=== PATIENT | male | born 1930 | race Hispanic/Latino ===

== ENCOUNTER 2016-08-16 09:45 | Observation (INO) | payer OTHER ==
[~2016-08-16] VITALS: Ht 170.2 cm; Wt 75.0 kg
--- NOTE | 2016-08-16 10:00 | ED NEURO DEFICIT/STROKE ---
History of Present Illness General Chief Complaint: Neuro Symptoms/ Deficit Stated Complaint: BIBA ?CVA Source: patient Exam Limitations: no limitations Vital Signs & Intake/Output Vital Signs & Intake/Output Vital Signs Date Time Temp Pulse Resp B/P B/P Pulse O2 O2 Flow FiO2 Mean Ox Delivery Rate 08/16 1010 99 Room Air 08/16 1010 98.2 72 18 188/86 97 Room Air Allergies Coded Allergies: No Known Allergies (08/16/16) Reconcile Medications Aspirin (Aspirin*) 81 MG TAB.CHEW 1 TAB PO DAILY blood thinner Lisinopril 2.5 MG TABLET 1 TAB PO DAILY stroke prevention Lovastatin 40 MG TABLET 1 TAB PO DAILY High Cholestrol with food Triage Nurses Notes Reviewed? yes Onset: Abrupt (unknown) Duration: constant, continues in ED, onset presumably overnight Severity: severe New Weakness: left facial HPI: Patient presents for evaluation of a left facial droop similar to a prior CVA he had years ago while in [place]. The patient's noticed the alteration in facial appearance when the patient awoke this morning. In addition the patient' s states that he was unable to speak upon awakening. Past History Travel History Traveled to [place] past 21 day No Medical History Any Pertinent Medical History? see below for history Neurological: CVA Surgical History Surgical History: non-contributory Family History Hx Contributory? No Review of Systems Review of Systems Constitutional: Reports: no symptoms. EENTM: Reports: no symptoms. Respiratory: Reports: no symptoms. Cardiovascular: Reports: no symptoms. GI: Reports: no symptoms. Genitourinary: Reports: no symptoms. Musculoskeletal: Reports: no symptoms. Skin: Reports: no symptoms. Neurological/Psychological: Reports: see HPI. Hematologic/Endocrine: Reports: no symptoms. Immunologic/Allergic: Reports: no symptoms. All Other Systems: Reviewed and Negative Physical Exam Physical Exam General Appearance: see below Cranial Nerves: see below Comments: Gen.: Well-nourished, well-developed, no acute respiratory distress. Head: Normocephalic, atraumatic. Eyes: Normal inspection bilaterally Ears: Normal inspection bilaterally Nose: Normal inspection Throat/mouth : Moist mucosa Neck: Supple, full range of motion, no goiter Heart: Regular rate and rhythm, no murmurs rubs or gallops Lungs: Clear to auscultation bilaterally with normal air entry Chest: Nontender Back: Normal range of motion Abdomen: Soft, nontender, nondistended, normal bowel sounds Extremities: Normal range of motion grossly, equal radial pulses, no cyanosis clubbing or edema Neurologic: Cranial nerves grossly intact, speech is clear Skin: warm and dry Psychiatric: Calm, cooperative, no apparent delusions or hallucinations Core Measures CVA/TIA Diagnosis: Yes NIH Stroke Scale: Total 3 Comment: TPA not administered given the unclear onset time, minimal symptoms and improving symptoms Severe Sepsis Present: No Septic Shock Present: No Progress Differential Diagnosis: stroke, tia,hypoglycemia, Hennessy's palsy Plan of Care: Orders Procedure Date/time Status URINALYSIS 08/16 1231 Active EKG 08/16 1008 Active PROTHROMBIN TIME 08/16 1005 Complete LYME TITRE 08/16 1005 Active CBC WITHOUT DIFFERENTIAL 08/16 1005 Complete BASIC METABOLIC PANEL 08/16 1005 Complete Current Medications Sig/Eli Start time Last Medication Dose Stop Time Status Admin Aspirin 81 MG ONCE ONE 08/16 1245 UNVr (Aspirin) 08/16 1246 Laboratory Tests 08/16/16 1233: Urine Color Pending, Urine Clarity Pending, Urine pH Pending, Ur Specific [place] Pending, Urine Protein Pending, Urine Ketones Pending, Urine Nitrite Pending, Urine Bilirubin Pending, Urine Urobilinogen Pending, Ur Leukocyte Esterase Pending, Ur Microscopic Pending, Urine Hemoglobin Pending, Urine Glucose Pending 08/16/16 1038: Anion Gap 10, Estimated GFR > 60, BUN/Creatinine Ratio 18.0, Glucose 102 H, Calcium 9.1, PT 11.4, INR 1.09, CBC w Diff NO MAN DIFF REQ, RBC 3.97 L, MCV 94.7 H, MCH 32.0 H, RDW 13.2, MPV 7.3 L, Gran % 66.3, Lymphocytes % 25.4, Monocytes % 5.5, Eosinophils % 2.4, Basophils % 0.4, Absolute Granulocytes 4.0, Absolute Lymphocytes 1.5, Absolute Monocytes 0.3, Absolute Eosinophils 0.1, Absolute Basophils 0, PUBS MCHC 33.8, Lyme Disease Antibody Pending Diagnostic Imaging: Discussed w/RAD: CT Scan. Radiology Impression: PATIENT: ESVIN BOURGEOIS PRESENT AGE: 85 PATIENT ACCOUNT NO: [id number] : [birth year] LOCATION: [facility] ORDERING PHYSICIAN: NOVA HENNESSY MD SERVICE DATE: 08/16/16 EXAM TYPE: CAT - CT HEAD WO IV CONTRAST EXAMINATION: CT HEAD WITHOUT CONTRAST CLINICAL INFORMATION: Left facial droop. COMPARISON: None TECHNIQUE: Contiguous axial imaging was performed from the skull base to vertex without intravenous administration of contrast. DLP: 621 mGy-cm FINDINGS: There is no evidence of acute intracranial hemorrhage or territorial infarction. No abnormal mass effect or midline shift is seen. Duvall to white matter differentiation is well preserved. No extra-axial fluid collections are identified. The ventricles are normal in size for the patient's age. There is no abnormal attenuation within the brain parenchyma. The osseous structures and soft tissues are normal. The mastoid air cells and visualized portions of the paranasal sinuses are well aerated. IMPRESSION: No acute intracranial pathology. DICTATED BY: GIUSEPPE DEL RIO MD DATE/TIME DICTATED:08/16/161026 REPAIR ORDER CLERK:MALIA DATE/TIME TRANSCRIBED:08/16/161026 CONFIDENTIAL, DO NOT COPY WITHOUT APPROPRIATE AUTHORIZATION. <Electronically signed in Other Vendor System> SIGNED BY: GIUSEPPE DEL RIO MD 08/16/16 1033 Initial ED EKG: NSR, rate (67), RBBB, lafb Comments: 08/16/2016 10:07:30 AM Patient's case discussed with Dr. AYOUB, who states patient is out of the time window for TPA and intravascular intervention. CTA would not be helpful under the circumstances. He feels patient may be suffering Hennessy's palsy and suggests Lyme titer. CAT scan of the head ordered as MRI scan unavailable until 3:00 this afternoon. 08/16/2016 12:34:18 PM patient's case discussed with Dr. Fall. Patient presents with hypertension and a history that he had difficulty speaking while at home. In addition his symptoms seem to have improved substantially since symptom onset. I do not feel at this point I can attribute this to a Hennessy's palsy, I feel this patient requires hospitalization for further evaluation. 08/16/2016 12:40:00 PM patient has swallowed a half a glass of water with no delayed swallow cough or other complications. He has passed a bedside swallow evaluation. In addition the patient's left facial droop has improved significantly. His nasolabial fold is much more defined now. Departure Departure Disposition: STILL A PATIENT Condition: Stable Clinical Impression Primary Impression: TIA (transient ischemic attack) Qualifiers: Transient cerebral ischemia type: unspecified Qualified Code: G45.9 - Transient cerebral ischemic attack, unspecified Departure Forms: Customer Survey General Discharge Information Prescriptions: Current Visit Scripts Lovastatin 1 TAB PO DAILY #30 TAB with food Lisinopril 1 TAB PO DAILY #30 TAB Aspirin (Aspirin*) 1 TAB PO DAILY #30 TAB Observation Note Spoke With: MARION TOUSSAINT,GINA Brown Physician Advisor Notified: NELSY TOUSSAINT,HERNANDO [facility] Patient In: Non-ED OBS Care Area Rationale for Observation: My rational for observation is as follows patient's clinical presentation is consistent with a TIA versus CVA. He presents with hypertension and a left facial droop. Symptoms are improving since presumed onset overnight. Although Hennessy's palsy remains in the differential I think this clinical presentation is more consistent with a TIA. I feel the patient now requires hospitalization for investigation of reversible causes of his TIA including cardioembolic phenomenon and carotid disease. Cardiology consultation for echocardiogram should be considered. Neurology consultation should also be considered to help differentiate between CVA versus Hennessy's palsy. Patient has no primary care physician currently and I feel he is a poor candidate for outpatient management at this time. I feel he would have great difficulty in an expedited evaluation given the lack of a primary care physician.
--- NOTE | 2016-08-16 10:10 | NUR ---
PT TO ED FOR L SIDED FACIAL DROOP AND ONE EPISODE OF GARBLED SPEECH WHEN HIS WOKE HIM UP THIS AM AROUND 7AM. ON ARRIVAL TO ED, SLIGHT L SIDED FACIAL DROOP NOTED, TONGUE DRIFT TO R. DR SPRAGUE IMMEDIATELY TO BEDSIDE TO EVALUATE.
--- NOTE | 2016-08-16 10:24 | NUR ---
PT SEEN IN ROOM WITH FAMILY PRESENT. LABS SENT PER ORDER. NEW #20 PLACED IN RFA. PT CHENGED INTO HOSPITAL GOWN AND SENT TO CT SCAN
--- NOTE | 2016-08-16 10:33 | CT SCAN REPORT ---
EXAMINATION: CT HEAD WITHOUT CONTRAST CLINICAL INFORMATION: Left facial droop. COMPARISON: None TECHNIQUE: Contiguous axial imaging was performed from the skull base to vertex without intravenous administration of contrast. DLP: 621 mGy-cm FINDINGS: There is no evidence of acute intracranial hemorrhage or territorial infarction. No abnormal mass effect or midline shift is seen. Duvall to white matter differentiation is well preserved. No extra-axial fluid collections are identified. The ventricles are normal in size for the patient's age. There is no abnormal attenuation within the brain parenchyma. The osseous structures and soft tissues are normal. The mastoid air cells and visualized portions of the paranasal sinuses are well aerated. IMPRESSION: No acute intracranial pathology.
--- NOTE | 2016-08-16 10:41 | NUR ---
ALL BLOOD REDRAWN PER REQ OF THE LAB (2 SST,LAV,BLUE,PINK,ROLDAN)
[2016-08-16 10:48] LABS: ABSOLUTE BASOPHIL COUNT 0 /CUMM (0.0-0.2); ABSOLUTE EOSINOPHIL COUNT 0.1 /CUMM (0.0-0.7); ABSOLUTE LYMPH COUNT 1.5 /CUMM (1.2-3.4); ABSOLUTE MONOCYTE COUNT 0.3 /CUMM (0.10-0.60); BASOPHIL % 0.4 % (0.0-2.0); EOSINOPHIL % 2.4 % (0-5); GRANULOCYTE % 66.3 % (42.2-75.2); HEMATOCRIT 37.6 % (42-52); MEAN CORPUSCULAR HGB CONC 33.8 G/DL (33.0-37.0); MEAN CORPUSCULAR VOLUME 94.7 FL (80.0-94.0); MEAN PLATELET VOLUME 7.3 FL (7.4-10.4); PLATELET COUNT 273 /CUMM (130-400); RBC DISTRIBUTION WIDTH 13.2 % (11.5-14.5); RED BLOOD CELL CT 3.97 /CUMM (4.70-6.10)
[2016-08-16 10:53] LABS: PT 11.4 SEC (9.4-12.5)
--- NOTE | 2016-08-16 12:24 | NUR ---
PT STATING HE IS FEELING MUCH BETTER, SLIGHT LEFT SIDED FACIAL DROOP NOTED CONTINUED. PT REQUESTING TO STAND TO VOID. THIS RN AT BEDSIDE AND PT ABLE TO STAND AND TAKE FEW STEPS WITH NO DIFFICULTY OR DIZZINESS. STATING HE IS FEELING "PRETTY MUCH TO NORMAL" THROUGH SON WHO IS TRANSLATING PT IS ONLY K[place]H SPEAKING.
--- NOTE | 2016-08-16 12:49 | NUR ---
DIET ORDER AND URINE ORDER PER DR SPRAGUE, PT PASSED SWALLOW EVAL WITH DR SPRAGUE WITH NO DIFFICULTY
--- NOTE | 2016-08-16 13:17 | NUR ---
PT GOING TO ROOM 172-01.
--- NOTE | 2016-08-16 13:25 | NUR ---
HOUSE STAFF IN WITH PT FOR NEURO EXAMINATION
--- NOTE | 2016-08-16 13:49 | NUR ---
REPORT TO MARYBEL TIJERINA ON 1N
--- NOTE | 2016-08-16 14:00 | History & Physical ---
KIANA TOUSSAINT,[facility] 08/16/16 1400: General Information and HPI MD Statement: I have seen and personally examined ESVIN BOURGEOIS and documented this H&P. The patient is a 85 year old M who presented with a patient stated chief complaint of [lower extremity weakness and slurred speech]. Source of Information: patient, family Exam Limitations: language barrier History of Present Illness: Patient does not speak Samoan and most of the history was taken from the granddaughter and the . 85-year-old male with PMH of TIA 3 years ago, who presented to [facility] ED at 9: 45 a.m. after an episode of left lower extremity numbness and weakness, slurred speech, and left side facial drop. 2 weeks ago patient came from [place] to the , since he came he did not take his aspirin. Patient states that report difficulty speaking and left-sided facial weakness. Patient denies dizziness, headache, visual change, hearing change, current weakness or numbness. Patient never smoked, never drinks alcohol, never used recreational drug, lives with his , and ambulates independently at home. Allergies/Medications Allergies: Coded Allergies: No Known Allergies (08/16/16) Past History Travel History Traveled to [place] past 21 day No Medical History Neurological: CVA EENT: NONE Respiratory: NONE Gastrointestinal: NONE Hepatic: NONE Renal: NONE Musculoskeletal: NONE Psychiatric: NONE Endocrine: NONE Blood Disorders: NONE Cancer(s): NONE Surgical History Surgical History: non-contributory Past Family/Social History Psychosocial History ETOH Use: denies use Illicit Drug Use: denies illicit drug use Review of Systems Review of Systems Constitutional: Reports: weakness. Denies: chills, diaphoresis, fever, unexplained weight loss. EENTM: Denies: blurred vision, visual changes, hearing changes. Cardiovascular: Denies: chest pain, orthopena, palpitations, peripheral edema. Respiratory: Denies: cough, orthopnea, short of breath. GI: Denies: no symptoms, abdominal pain. Genitourinary: Denies: dysuria. Musculoskeletal: Reports: joint pain (left ankle). Denies: back pain. Neurological/Psychological: Reports: see HPI. Exam & Diagnostic Data Last 24 Hrs of Vital Signs/I&O Vital Signs Date Time Temp Pulse Resp B/P B/P Pulse O2 O2 Flow FiO2 Mean Ox Delivery Rate 08/16 1530 97.9 64 16 138/68 97 Room Air 06/ 1456 97.8 67 18 168/72 06/05 1454 97 168/72 06/05 1415 97.4 70 16 210/88 06/05 1357 210/90 06/05 1350 97.4 70 16 183/82 99 Room Air 06/05 1320 62 185/83 06/05 1308 97.7 61 16 187/79 06/05 1305 64 187/79 06/05 1243 97.0 78 18 184/88 98 Room Air 06/ 1010 99 Room Air / 1010 98.2 72 18 188/86 97 Room Air Intake & Output 08/16 1600 06/ 0800 06/ 0000 Intake Total Output Total 110 Balance -110 Output, Urine 110 Patient 75 kg Weight Weight Reported by Patient Measurement Method Physical Exam General Appearance Alert, Oriented X3, Cooperative, No Acute Distress HEENT Atraumatic, PERRLA, EOMI, Mucous Membr. moist/pink Cardiovascular Regular Rate, Normal S1, Normal S2, No Murmurs Lungs Clear to Auscultation, Normal Air Movement Abdomen Soft, No Tenderness Neurological Strength at 5/5 X4 Ext, Slurred speech , left side oral deviation Extremities No Clubbing, No Cyanosis, No Edema Last 24 Hrs of Labs/Ang: Laboratory Tests 08/16/16 1233: Urine Color YEL, Urine Clarity CLEAR, Urine pH 6.0, Ur Specific [place] 1.020, Urine Protein NEG, Urine Ketones NEG, Urine Nitrite NEG, Urine Bilirubin NEG, Urine Urobilinogen 0.2, Ur Leukocyte Esterase SMALL H, Ur Microscopic SEDIMENT EXAMINED, Urine RBC RARE, Urine WBC 1-3 H, Ur Epithelial Cells RARE, Urine Bacteria RARE H, Urine Mucus RARE, Urine Hemoglobin NEG, Urine Glucose NEG 08/16/16 1038: Anion Gap 10, Estimated GFR > 60, BUN/Creatinine Ratio 18.0, Glucose 102 H, Hemoglobin A1c 5.4, Calcium 9.1, Triglycerides 101, Cholesterol 255 H, LDL Cholesterol, Calc 193 H, HDL Cholesterol 42, Cholesterol/HDL Ratio 6 H, PT 11.4, INR 1.09, CBC w Diff NO MAN DIFF REQ, RBC 3.97 L, MCV 94.7 H, MCH 32.0 H, RDW 13.2, MPV 7.3 L, Gran % 66.3, Lymphocytes % 25.4, Monocytes % 5.5, Eosinophils % 2.4, Basophils % 0.4, Absolute Granulocytes 4.0, Absolute Lymphocytes 1.5, Absolute Monocytes 0.3, Absolute Eosinophils 0.1, Absolute Basophils 0, PUBS MCHC 33.8, Lyme Disease Antibody Pending Assessment/Plan Assessment: This is 85 year old male with a history of TIA 2 years ago who presented with a similar symptom suggestive of another TIA episode. Patient stopped taking his aspirin 2 weeks ago. Patient denies any history of hypertension, hyperlipidemia , or diabetes, however has blood pressure was found to be above 180 the ED. Patient symptom almost totally resolved. Head CT impression: No acute intracranial pathology. Patient will be admitted as an observe. 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 Patient blood pressure was elevated up to 210/90 on the ED. Patient was given 1.25 Vasotec IV, later he received 5 mg of IV labetalol. Blood pressure still above 200 1.TIA * Start aspirin * Start statin * We will place Neurology consult * We will discuss the need for vascular consult * PT/OT/ST 2. Hyperlipidemia HDL 42, LDL 193, and cholesterol 255 * Start statin 3. Hypertension * Allow permissive hypertension with a target being above 184 tonight * Start lisinopril 10 mg daily Patient is full code DVT PPx Lovenox Heart healthy diet As Ranked By This Provider Problem List: 1. TIA (transient ischemic attack) Qualifiers Transient cerebral ischemia type: unspecified Qualified Code: G45.9 - Transient cerebral ischemic attack, unspecified Core Measures/Miscellaneous Acute Coronary Syndrome ACS Diagnosis: No Cerebrovascular Accident CVA/TIA Diagnosis: Yes Congestive Heart Failure CHF Diagnosis: No Venous Thromboembolism VTE Risk Factors: Acute medical illness, Age > 40 No [facility] VTE prophylaxis d/t: No contraindications No VTE Pharm Prophylaxis d/t: No contraindications VTE Diagnosis: No VTE Type: NONE VTE Confirmed by (Test): NONE Severe Sepsis Severe Sepsis Present: No Septic Shock Septic Shock Present: No Miscellaneous Documentation Attending Case Discussed With: PRAKASH ROSAS MD Primary Care Physician: PATIENT HAS NO PRIMARY CARE DR Patient sees these Specialists neurology Level of Patient Care: Telemetry SOUMYA FRANCO 08/16/16 1407: Resident Review Statement Resident Statement: examined this patient, discussed with employee communications intern, agreed with employee communications intern Other Findings: Patient is 85-year-old Colombian-speaking male with past medical history significant for TIA 3 years ago in by mouth not on any aspirin/statin came with chief complaint of left-sided facial droop and transient left-sided lower extremity weakness since morning. Patient does not speak or understand Samoan and history is taken from family including son, grandson, granddaughter and . Granddaughter and grandson was translating and according to them patient woke up this morning fine and went to take vulcanizer at that time he was walking slowly and tracking his left leg and by the time he came back after shower there was an obvious left-sided facial droop and slurring of her speech. 911 was called and patient was brought in to the emergency room. Neurology was called by ER physician and first is was thought that his symptoms might be due to Hennessy's palsy because ER physician also noticed some flattening of left for head but later on during his ER stay within an hours his symptoms improved and his facial droop/nasolabial fold were significantly resolved and most likely at that point his symptoms were thought to be due to TIA, head CT was done which was negative and it was thought that patient is already out of TPA window and was given aspirin. Condition denied any chest pain, palpitations, headache, nausea, dizziness, blurring of his vision, ringing in his extremities, any upper or lower extremity weakness, any urinary or bowel complaints. Jessica mentioned that he had similar symptoms almost 3 years ago but there was no definitive diagnoses and symptoms resolved and patient was never been taking any prophylactic medications. He was never been diagnosed with any major medical issues including high blood pressure, diabetes or any cardiac problems. Vital signs on admission were temperature 97.4, pulse 70, respiratory rate 16, blood pressure 183/82 and he was saturating 99% on room air. Blood pressure later on came up to 210/90 and was given 1.25 mg of Vasotec. Labs were nonsignificant except his cholesterol was 255, triglycerides 101, LDL 193 and HDL 42. EKG showed normal sinus rhythm with no acute ST-T wave changes Assessment and plan: Patient is 85-year-old Colombian-speaking gentleman with history of TIA in the past not on aspirin or statin came with chief complaint of left facial droop and left lower extremity weakness with significant improvement in his symptoms within a few hours most likely due to TIA. We will observe patient on telemetry floor for 23 hours Problem list 1. Left facial droop, slurring of his speech most likely TIA 2. Hyperlipidemia 3. Hypertension 4. History of TIA Plan 1. 23 hour observation on telemetry floor 2. Will start patient on aspirin and statins 3. Patient was found to have elevated blood pressure but given his TIA have her blood pressure we will aggressively control his blood pressure to reduce chances of more TIA. Patient was given 1.25 mg of Vasotec, his blood pressure was 210/ 90 and we will give him once labetalol 5 mg IV and we will start him on oral lisinopril. 4. We will request neurology evaluation 5. We will order a carotid ultrasound to rule out any significant carotid stenosis 6. We will request echocardiogram to look for any wall motion abnormality and we will check for ventricular ejection fraction 7. Patient passed bedside swallow evaluation but we will recommend formal swallow/speech evaluation 8. PT evaluation 9. NIH stroke scale every 2 hours Patient is full code Pharmacological DVT prophylaxis Heart healthy diet MEGHAN SCHULTZMaria Dolores 08/16/16 1731: General Information and HPI Allergies/Medications Home Med list Aspirin (Aspirin*) 81 MG TAB.CHEW 1 TAB PO DAILY blood thinner Lisinopril 2.5 MG TABLET 1 TAB PO DAILY stroke prevention Lovastatin 40 MG TABLET 1 TAB PO DAILY High Cholestrol with food Attending MD Review Statement Attending Statement Attending MD Statement: examined this patient, discuss w/resident/PA/APPLIANCE PARTS COUNTER CLERK, agreed w/resident/PA/APPLIANCE PARTS COUNTER CLERK, discussed with family, reviewed EMR data (avail), discussed with nursing Attending Assessment/Plan: Patient seen and examined at bedside. Discussed with patient's family at bedside the care plan. 85-year-old male from [place] who came in about 2-3 weeks ago to [facility]. Patient has past history of CVA about 3 years ago for which he was put on aspirin. Patient had similar symptoms at that time with the left leg weakness and facial droop. Patient stopped taking his aspirin 2 days prior to coming to the [place] that's about 3 weeks ago. Patient was positive to the emergency room with the chief complaint of left leg weakness and left-sided facial droop and some speech disturbances. Patient's found patient to be dragging his left foot this morning along with the facial droop and slurring of speech and called 911. Patient on exam still has the facial droop though his speech has cleared up now. CT scan of the head done in the emergency room was negative for acute stroke. We'll admit the patient on telemetry and continue him on aspirin and start him on Lipitor. We will get a carotid ultrasound as well as an echocardiogram and will also get a neurology consult. We will allow for permissive hypertension for now.
--- NOTE | 2016-08-16 14:07 | NUR ---
RESIDENT SOUMYA FRANCO CALLED AND STATED SHE WAS CANCELLING THE IV LABETOLOL ORDER AND ORDERING PO INSTEAD SO PTS PRESSURE WILL COME DOWN SLOWLY BEING PT ALREADY RECIEVED IV MEDS. PER REDIENT ITS OK TO STILL SEND THE PATIENT TO TELE WITH THE BP BEING 210/90 AT THIS TIME. LILLIANA MORRISON
--- NOTE | 2016-08-16 14:43 | NUR ---
PHYSICAL THERAPY: RECIEVED CONSULT ORDERS, REVIEWED CHART, ATTEMPTED TO SEE Pt. PATIENT IS AT ULTRASOUND. P.T. WILL F/U APPROPRAITE FOR EVALUATION.
--- NOTE | 2016-08-16 15:11 | ULTRASOUND REPORT ---
EXAMINATION: DUPLEX BILATERAL CAROTID ULTRASOUND CLINICAL INFORMATION: Left facial droop COMPARISON: None. TECHNIQUE: Duplex bilateral carotid US was performed using real-time ultrasound and Doppler techniques (integrating B-mode 2D vascular images, Doppler spectral analysis and color flow Doppler imaging). These techniques were utilized to interrogate the extracranial carotid and vertebral arteries bilaterally. The degree of stenosis is based off criteria similar to NASCET. FINDINGS: 1. On the right: There is a hemodynamically significant stenosis correlating to 50-79% diameter reduction of the proximal internal carotid artery. A moderate amount of hyperechoic plaque is noted at the bifurcation extending into the proximal internal carotid artery. The peak systolic and diastolic velocities as measured within the proximal internal carotid artery equals 137 and 34 cm/s respectively. The vertebral artery is patent demonstrating antegrade flow. The right external carotid artery shows no significant stenosis. 2. On the left: There is a hemodynamically significant stenosis correlating to 50-79% diameter reduction of the proximal internal carotid artery. A moderate amount of hyperechoic plaque is noted at the bifurcation extending into the proximal internal carotid artery. The peak systolic and diastolic velocities as measured within the proximal internal carotid artery equals 135 and 34 cm/s respectively. The vertebral artery is patent demonstrating antegrade flow. The left ECA demonstrates a mild stenosis with peak systolic velocity of under 200 cm/s. IMPRESSION: Bilateral hemodynamically significant stenoses consistent with a 50-79% diameter reduction involving both the proximal left and right internal carotid arteries.
[2016-08-16 15:30] VITALS: BP 138/68
--- NOTE | 2016-08-16 17:31 | Admission Certification ---
Admission Certification Certification Statement - As attending physician, I certify that at the time of - admission, based on clinical presentation, severity of - symptoms, need for further diagnostic testing and - therapeutic interventions, and risk of adverse outcomes - without in-hospital treatment, in my clinical assessment, - this patient requires an acute hospital stay for a minimum - of two nights or longer. I have also considered psychsocial - factors such as support system, advanced age, financial - issues, cognitive issues, and failed out-patient treatments, - past re-admission history, safety of patient, and lack of - compliance as applicable. Specific rationale supporting this admission is: stroke
[2016-08-16 19:00] VITALS: BP 158/70
--- NOTE | 2016-08-16 19:08 | ECHOCARDIOGRAM REPORT ---
ESVIN BOURGEOIS Age: 85 : 1930 Gender: M Exam Date: 08/16/2016 16:56 Exam Location: [facility] Ht (in): 67 Wt (lb): 165 BSA: 1.89 BP: 168 / 72 Ordering Physician: SOUMYA FRANCO MD Referring Physician: SOUMYA FRANCO MD Technologist: Ivy Lock DOUG Room Number: 172 Indications: STROKE Rhythm: Technical Quality: Good FINDINGS Left Ventricle Normal size left ventricle. Mild concentric left ventricular hypertrophy. Normal left ventricular ejection fraction visually estimated at >65 %. No obvious regional wall motion abnormalities. Abnormal relaxation filling pattern of the left ventricle for age (stage 1 diastolic dysfunction). Right Ventricle The right ventricle is normal in size and function. Right Atrium The right atrium is normal in size. Left Atrium The left atrium is normal in size. The interatrial septum is intact. Mitral Valve Mild thickening/calcification of the mitral valve leaflets. Mild mitral annular calcification. Mild mitral regurgitation. Aortic Valve Diffuse thickening (sclerosis) of the aortic valve cusps without reduced excursion. No aortic stenosis. No aortic regurgitation. Tricuspid Valve The tricuspid valve is normal in structure and function. There is mild tricuspid regurgitation. Pulmonary artery systolic pressure is normal. Pulmonic Valve Structurally normal pulmonic valve. There is trace pulmonic regurgitation. Pericardium Normal pericardium without effusion. No pleural effusion. Great Vessels Normal aortic root dimension. Aortic arch not visualized. CONCLUSIONS Mild concentric left ventricular hypertrophy. Normal left ventricular ejection fraction visually estimated at >65 Abnormal relaxation filling pattern of the left ventricle for age (stage 1 diastolic dysfunction). The left atrium is normal in size. Mild thickening/calcification of the mitral valve leaflets. Mild mitral annular calcification. Mild mitral regurgitation. Diffuse thickening (sclerosis) of the aortic valve cusps without reduced excursion. No aortic stenosis. No aortic regurgitation. Pulmonary artery systolic pressure is normal. Venkatesh Dawn M.D. (Electronically Signed) Final Date: 16 August 2016 19:07 MEASUREMENTS (Male / Female) Normal Values 2D ECHO LV Diastolic Diameter PLAX 3.5 cm 4.2 - 5.9 / 3.9 - 5.3 cm LV Systolic Diameter PLAX 2.4 cm 2.1 - 4.0 cm LV Fractional Shortening PLAX 31.4 % 25 - 46 % LV Ejection Fraction 2D Teich 60.4 % IVS Diastolic Thickness 1.2 cm LVPW Diastolic Thickness 1.2 cm LV Relative Wall Thickness 0.7 RV Internal Dim ED PLAX 2.0 cm 1.9 - 3.8 cm LVOT Diameter 2.0 cm Aortic Root Diameter 3.0 cm LA Systolic Diameter LX 3.4 cm 3.0 - 4.0 / 2.7 - 3.8 cm LA Volume 33.0 cm 18 - 58 / 22 - 52 cm Ascending Aorta Diameter 3.2 cm DOPPLER AV Peak Velocity 161.0 cm/s AV Peak Gradient 10.4 mmHg AV Mean Velocity 108.0 cm/s AV Mean Gradient 5.0 mmHg AV Velocity Time Integral 34.8 cm LVOT Peak Velocity 77.5 cm/s LVOT Peak Gradient 2.4 mmHg LVOT Mean Velocity 52.4 cm/s LVOT Mean Gradient 1.0 mmHg LVOT Velocity Time Integral 18.4 cm LVOT Stroke Volume 57.8 cm AV Area Cont Eq vti 1.7 cm AV Area Cont Eq pk 1.5 cm MV Peak Velocity 104.0 cm/s MV Peak Gradient 4.3 mmHg MV Mean Velocity 51.3 cm/s MV Mean Gradient 1.0 mmHg Mitral E Point Velocity 59.7 cm/s Mitral A Point Velocity 91.8 cm/s Mitral E to A Ratio 0.7 MV PHT Velocity 73.8 cm/s MV Deceleration [facility] 310.0 cm/s MV Pressure Half Time 71.4 ms MV Area PHT 3.1 cm MV Deceleration Time 301.0 ms TR Peak Velocity 247.0 cm/s TR Peak Gradient 24.4 mmHg Right Atrial Pressure 5.0 mmHg Pulmonary Artery Systolic Pressu 29.4 mmHg Right Ventricular Systolic Press 29.4 mmHg PV Peak Velocity 78.6 cm/s PV Peak Gradient 2.5 mmHg PV Mean Velocity 53.4 cm/s PV Mean Gradient 1.0 mmHg PV Velocity Time Integral 16.2 cm LV E' Lateral Velocity 8.1 cm/s Mitral E to LV E' Lateral Ratio 7.4 LV E' Septal Velocity 5.8 cm/s Mitral E to LV E' Septal Ratio 10.4
[2016-08-17 00:08] VITALS: BP 132/52
--- NOTE | 2016-08-17 07:30 | PN- Housestaff ---
Subjective Follow-up For: TIA Hyperlipidemia Hypertension Tele-Events Since Last Visit: Normal sinus rhythm, heart rate fluctuating between 50-61, no other acute overnight events. Subjective: Patient seen and examined this morning. He was lying comfortably in his chair in no acute distress. He was am able to ambulate without any weakness in his lower extremities. Continues to have slurred speech and left facial droop. Denies any current weakness, numbness in his upper or lower extremities, blood pressure has been ranging between 132-158 systolic. Afebrile, remains on room air satting well and high 90s. Review of Systems Constitutional: Denies: chills, fever. Cardiovascular: Denies: chest pain, palpitations. Respiratory: Denies: cough, short of breath, sputum production. Gastrointestinal: Denies: abdominal pain, constipation, diarrhea, nausea, vomiting. Genitourinary: Denies: dysuria. Objective Last 24 Hrs of Vital Signs/I&O Vital Signs Date Time Temp Pulse Resp B/P B/P Pulse O2 O2 Flow FiO2 Mean Ox Delivery Rate 08/17 1034 64 120/70 08/17 0800 98.8 81 16 120/70 96 Room Air 06/ 0008 98.4 66 16 132/52 96 Room Air 06/05 1900 66 158/70 06/05 1530 97.9 64 16 138/68 97 Room Air 06/05 1456 97.8 67 18 168/72 06/05 1454 97 168/72 06/05 1415 97.4 70 16 210/88 06/05 1357 210/90 06/05 1350 97.4 70 16 183/82 99 Room Air Intake & Output 08/17 1600 06 0800 08/17 0000 Intake Total 200 420 Output Total Balance 200 420 Intake, IV 20 Intake, Oral 200 400 Patient 75 kg Weight Physical Exam General Appearance: Cooperative, No Acute Distress Cardiovascular: Regular Rate, Normal S1, Normal S2, No Murmurs Lungs: Clear to Auscultation, Normal Air Movement Abdomen: Normal Bowel Sounds, Soft, No Tenderness Neurological: Strength at 5/5 X4 Ext, slurred speech, left facial droop, Extremities: No Clubbing, No Cyanosis, No Edema Current Medications: Current Medications Sig/Eli Start time Last Medication Dose Route Stop Time Status Admin Acetaminophen 650 MG Q6P PRN 08/16 1400 AC PO Aspirin 81 MG DAILY 08/17 1000 AC 08/17 PO 1034 Atorvastatin Calcium 40 MG 1700 08/16 1700 DC PO Atorvastatin Calcium 80 MG 1700 08/16 1700 AC 08/16 PO 2000 Enoxaparin Sodium 0 .STK-MED ONE 08/16 1410 DC SC Enoxaparin Sodium 40 MG DAILY@1300 / 1350 AC 08/16 SC 1415 Ibuprofen 600 MG Q6P PRN 08/16 1400 DC PO Labetalol HCl 5 MG ONCE ONE 08/16 1430 DC IV 08/16 1431 Labetalol HCl 0 .STK-MED ONE 08/16 1410 DC IV Labetalol HCl 5 MG ONCE ONE 08/16 1400 CAN IV 08/16 1401 Lisinopril 10 MG DAILY 08/16 1415 AC 08/17 PO 1034 Lisinopril 0 .STK-MED ONE 08/16 1414 DC PO Oxycodone/ 2 TAB Q6P PRN 08/16 1400 AC Acetaminophen PO Last 24 Hrs of Lab/Ang Results Last 24 Hrs of Labs/Mics: Laboratory Tests 08/17/16 0610: Anion Gap 10, Estimated GFR > 60, BUN/Creatinine Ratio 18.9, CBC w Diff NO MAN DIFF REQ, RBC 3.88 L, MCV 95.3 H, MCH 32.0 H, RDW 13.4, MPV 7.9, Gran % 62.9, Lymphocytes % 27.2, Monocytes % 5.8, Eosinophils % 3.5, Basophils % 0.6, Absolute Granulocytes 3.6, Absolute Lymphocytes 1.6, Absolute Monocytes 0.3, Absolute Eosinophils 0.2, Absolute Basophils 0, PUBS MCHC 33.6 Assessment/Plan Assessment: Patient is 85-year-old [place] Islander-speaking gentleman with history of TIA in the past not on aspirin or statin came with chief complaint of left facial droop and left lower extremity weakness with significant improvement in his symptoms within a few hours most likely due to TIA. Patient was kept under observation on telemetry for, started on aspirin and high -dose statin, blood pressure initially was high, starting on lisinopril, now adequately controlled. Carotid ultrasound showed evidence of bilateral hemodynamically significant stenoses consistent with a 50-79% diameter reduction involving both the proximal left and right internal carotid arteries. Echo showed EF of greater than 65%, no valvular abnormality. Patient over the next 24 hours improved dramatically, he was able to ambulating without any weakness, but continued to have slurred speech and left facial droop. PT/OT/ST Also, Lyme body was positive, patient denied any current ongoing intense, or any history of Lyme's. We have ordered some blood, pending results we'll decide if patient needs treatment. Patient aurelia Linn can be contacted at [phone], daniel Bhatia can also be reached at [phone](as per patient request). Patient is full code Pharmacological DVT prophylaxis Heart healthy diet Problem List: 1. TIA (transient ischemic attack) Pain Ratin Pain Location: None Pain Goal: Remain pain free Pain Plan: Mild pain pathway Tomorrow's Labs & Rationales: None patient for discharge Discharge Plan Discharge Disposition: home Stable for Discharge? Yes Anticipated Discharge (Day): today
[2016-08-17 07:45] LABS: ABSOLUTE BASOPHIL COUNT 0 /CUMM (0.0-0.2); ABSOLUTE EOSINOPHIL COUNT 0.2 /CUMM (0.0-0.7); ABSOLUTE GRANULOCYTE CT 3.6 /CUMM (1.4-6.5); ABSOLUTE LYMPH COUNT 1.6 /CUMM (1.2-3.4); ABSOLUTE MONOCYTE COUNT 0.3 /CUMM (0.10-0.60); BASOPHIL % 0.6 % (0.0-2.0); EOSINOPHIL % 3.5 % (0-5); GRANULOCYTE % 62.9 % (42.2-75.2); MEAN CORPUSCULAR HGB CONC 33.6 G/DL (33.0-37.0); MEAN CORPUSCULAR VOLUME 95.3 FL (80.0-94.0); MEAN PLATELET VOLUME 7.9 FL (7.4-10.4); PLATELET COUNT 249 /CUMM (130-400); RBC DISTRIBUTION WIDTH 13.4 % (11.5-14.5); RED BLOOD CELL CT 3.88 /CUMM (4.70-6.10); WHITE BLOOD CELL COUNT 5.7 /CUMM (4.8-10.8)
[2016-08-17 08:00] VITALS: BP 120/70
--- NOTE | 2016-08-17 11:40 | PN- Att Addend ---
Attending MD Review Statement Attending Statement Attending MD Statement: examined this patient, discuss w/resident/PA/HOUSE WORKER GENERAL, agreed w/resident/PA/HOUSE WORKER GENERAL, discussed with family, reviewed EMR data (avail), discussed w/ nursing, discussed w/case mgmt Attending Assessment/Plan: pt seen and examined at bedside. Pt admitted with facial droop and slurring of speech and left leg weakness. pt stopped taking his asa 2-3 weeks prior to discharge. Gives h/o stroke 3 years ago for which he was put on Asa. Pts lyme ab is positive but pt denies any history of having lyme disease in the past. We will f /u on lyme confirmatory test and then will call the family and let them know if he needs treatment. Plan dc home today on asa and statins. See dc summary for more details.
--- NOTE | 2016-08-17 13:05 | Patient Discharge Instructions ---
Discharge Instructions General Discharge Information You were seen/treated for: TIA Hyperlipidemia Hypertension Special Instructions: Your lyme ab is positive, have ordered a lyme confirmatory test, if positive you will be need to be treated. Diet Continue normal diet: Yes Recommended Diet: Heart Healthy Activity Full Activity/No Limits: Yes Activity Self Limited: Yes Acute Coronary Syndrome Inclusion Criteria At DC or during hospital stay patient has or had the following: ACS DIAGNOSIS No Discharge Core Measures Meds if any: Prescribed or Continued at Discharge Meds if any: NOT Prescribed or Continued at Discharge Congestive Heart Failure Inclusion Criteria At DC or during hospital stay patient has or had the following: CHF DIAGNOSIS No Discharge Core Measures Meds if any: Prescribed or Continued at Discharge Meds if any: NOT Prescribed or Continued at Discharge Cerebrovascular accident Inclusion Criteria At DC or during hospital stay patient has or had the following: CVA/TIA Diagnosis Yes Discharge Core Measures Meds if any: Prescribed or Continued at Discharge Antithrombotic No Statin (required if LDL =>70) Yes Anticoagulant Yes Meds if any: NOT Prescribed or Continued at Discharge No Antithrombotic d/t Medical Contraindication Venous thromboembolism Inclusion Criteria VTE Diagnosis No VTE Type NONE VTE Confirmed by (Test) NONE Discharge Core Measures - Per Current guidelines, there needs to be overlap - treatment for the first 5 days of Warfarin therapy. - If discharged on Warfarin prior to 5 days of - overlap therapy, the patient will need to be - assessed for post discharge needs including - *Post discharge parental anticoagulation - *Warfarin and/or parental anticoagulation education - *Follow up date to check INR post discharge At least 5 days overlap therapy as Inpatient No Meds if any: Prescribed or Continued at Discharge Note: Overlap Therapy is Warfarin and Anticoagulant Meds if any: NOT Prescribed or Continued at Discharge
[2016-08-17] MEDS ORDERED: LISINOPRIL10 M1 PO ×3 (13:09→13:40)
[2016-08-17] MEDS ORDERED: LOVASTATIN40 M1 PO ×3 (13:09→13:40)
[2016-08-17] MEDS ORDERED: ASPIRIN81 M4 PO ×3 (13:09→13:40)
[2016-08-17] MEDS ORDERED: LISINOPRIL2.5 M1 PO (15:20)
[2016-08-17 15:30] VITALS: BP 158/58
--- NOTE | 2016-08-17 15:58 | Cons- Neurology ---
General Information and HPI Consulting Request Date of Consult: 08/17/16 Requested By: PRAKASH ROSAS MD Source of Information: patient, family Exam Limitations: no limitations History of Present Illness: 85-year-old male visiting from [place] for granddaughter's wedding. Yesterday upon awakening he stated that he did not feel well. noted a left facial droop and he noted left-sided weakness arm and leg He also noted left-sided paresthesia There was no headache He was able to walk There has been slight improvement in his status since the onset of the problem He has been able to walk with physical therapy today He had a possible similar problem a few years ago which was very transient There was no difficulty with speech He is right-handed individual Allergies/Medications Allergies: Coded Allergies: No Known Allergies (08/16/16) Home Med List: Aspirin (Aspirin*) 81 MG TAB.CHEW 1 TAB PO DAILY blood thinner Lisinopril 2.5 MG TABLET 1 TAB PO DAILY stroke prevention Lovastatin 40 MG TABLET 1 TAB PO DAILY High Cholestrol with food Current Medications: Current Medications Sig/Eli Start time Last Medication Dose Route Stop Time Status Admin Acetaminophen 650 MG Q6P PRN 08/16 1400 AC PO Aspirin 81 MG DAILY 08/17 1000 AC 08/17 PO 1034 Atorvastatin Calcium 80 MG 1700 08/16 1700 AC 06/ PO 2000 Enoxaparin Sodium 40 MG DAILY@1300 /05 1350 AC 08/17 SC 1427 Lisinopril 10 MG DAILY 08/16 1415 DC / PO 1034 Oxycodone/ 2 TAB Q6P PRN / 1400 AC Acetaminophen PO Review of Systems Review of Systems: Denies headache, vertigo, speech difficulty, chest pain, breathing problem, nausea vomiting, bladder difficulty, head trauma, loss of consciousness, fever Past History Travel History Traveled to [place] past 21 day No Medical History Blood Transfusion Hx: No Neurological: CVA EENT: NONE Cardiovascular: NONE Respiratory: NONE Gastrointestinal: NONE Hepatic: NONE Renal: NONE Musculoskeletal: NONE Psychiatric: NONE Endocrine: NONE Blood Disorders: NONE Cancer(s): NONE CLAIM TECHNICIAN/Reproductive: NONE Surgical History Surgical History: non-contributory Psychosocial History Smoking Status: Former Smoker ETOH Use: denies use Illicit Drug Use: denies illicit drug use Exam & Diagnostic Data Vital Signs and I&O Vital Signs Date Time Temp Pulse Resp B/P B/P Pulse O2 O2 Flow FiO2 Mean Ox Delivery Rate 08/17 1034 64 120/70 08/17 0800 98.8 81 16 120/70 96 Room Air 08/17 0008 98.4 66 16 132/52 96 Room Air 08/16 1900 66 158/70 Intake & Output 08/17 1600 08/17 0800 08/17 0000 Intake Total 600 200 420 Output Total Balance 600 200 420 Intake, IV 20 Intake, Oral 600 200 400 Patient 165 lb Weight Physical Exam: Alert and oriented; Turkish-speaking Following all commands through roll dough divider Extraocular movements full, pupils equal and reactive, unable to visualize fundi , visual saleem grossly intact, mild left facial weakness, no facial sensory loss, palate tongue and shoulders midline Tone normal upper and lower extremities, mild distal weakness left upper extremity, difficulty finding motor movements on the left No sensory loss to light touch Deep tendon reflexes hypoactive throughout, plantar response flexor Coordinative functions upper extremity intact Patient walking with physical therapy independent Last 48 Hours of Lab Results: Laboratory Tests 08/17 08/16 0610 1233 Chemistry Sodium (137 - 145 mmol/L) 139 Potassium (3.5 - 5.1 mmol/L) 4.2 Chloride (98 - 107 mmol/L) 103 Carbon Dioxide (22 - 30 mmol/L) 26 Anion Gap (5 - 16) 10 BUN (9 - 20 mg/dL) 17 Creatinine (0.7 - 1.2 mg/dL) 0.9 Estimated GFR (>60 ml/min) > 60 BUN/Creatinine Ratio (7 - 25 %) 18.9 Hematology CBC w Diff NO MAN DIFF REQ WBC (4.8 - 10.8 /CUMM) 5.7 RBC (4.70 - 6.10 /CUMM) 3.88 L Hgb (14.0 - 18.0 G/DL) 12.4 L Hct (42 - 52 %) 37.0 L MCV (80.0 - 94.0 FL) 95.3 H MCH (27.0 - 31.0 PG) 32.0 H RDW (11.5 - 14.5 %) 13.4 Plt Count (130 - 400 /CUMM) 249 MPV (7.4 - 10.4 FL) 7.9 Gran % (42.2 - 75.2 %) 62.9 Lymphocytes % (20.5 - 51.1 %) 27.2 Monocytes % (1.7 - 9.3 %) 5.8 Eosinophils % (0 - 5 %) 3.5 Basophils % (0.0 - 2.0 %) 0.6 Absolute Granulocytes (1.4 - 6.5 /CUMM) 3.6 Absolute Lymphocytes (1.2 - 3.4 /CUMM) 1.6 Absolute Monocytes (0.10 - 0.60 /CUMM) 0.3 Absolute Eosinophils (0.0 - 0.7 /CUMM) 0.2 Absolute Basophils (0.0 - 0.2 /CUMM) 0 PUBS MCHC (33.0 - 37.0 G/DL) 33.6 Urines Urine Color (YEL,AMB,STR) YEL Urine Clarity (CLEAR) CLEAR Urine pH (5.0 - 8.0) 6.0 Ur Specific [place] (1.001 - 1.035) 1.020 Urine Protein (NEG,<30 MG/DL) NEG Urine Ketones (NEG) NEG Urine Nitrite (NEG) NEG Urine Bilirubin (NEG) NEG Urine Urobilinogen (0.1 - 1.0 EU/dl) 0.2 Ur Leukocyte Esterase (NEG) SMALL H Ur Microscopic SEDIMENT EXAMINED Urine RBC (0 - 5 /HPF) RARE Urine WBC (0 - 2 /HPF) 1-3 H Ur Epithelial Cells (NONE,FEW) RARE Urine Bacteria (NEG/NONE) RARE H Urine Mucus (FEW,NONE) RARE Urine Hemoglobin (NEG) NEG Urine Glucose (N MG/DL) NEG 08/16 08/16 1038 1038 Chemistry Sodium (137 - 145 mmol/L) 138 Potassium (3.5 - 5.1 mmol/L) 4.3 Chloride (98 - 107 mmol/L) 102 Carbon Dioxide (22 - 30 mmol/L) 26 Anion Gap (5 - 16) 10 BUN (9 - 20 mg/dL) 18 Creatinine (0.7 - 1.2 mg/dL) 1.0 Estimated GFR (>60 ml/min) > 60 BUN/Creatinine Ratio (7 - 25 %) 18.0 Glucose (65 - 99 mg/dL) 102 H Hemoglobin A1c (4.2 - 5.8 %) 5.4 Calcium (8.4 - 10.2 mg/dL) 9.1 Triglycerides (<150 mg/dL) 101 Cholesterol (< 200 MG/DL) 255 H LDL Cholesterol, Calc (65 - 129 mg/dL) 193 H HDL Cholesterol (40 - 60 mg/dL) 42 Cholesterol/HDL Ratio (0.00 - 4.88 %) 6 H Coagulation PT (9.4 - 12.5 SEC) 11.4 INR (0.90 - 1.17) 1.09 Hematology CBC w Diff NO MAN DIFF REQ WBC (4.8 - 10.8 /CUMM) 6.0 RBC (4.70 - 6.10 /CUMM) 3.97 L Hgb (14.0 - 18.0 G/DL) 12.7 L Hct (42 - 52 %) 37.6 L MCV (80.0 - 94.0 FL) 94.7 H MCH (27.0 - 31.0 PG) 32.0 H RDW (11.5 - 14.5 %) 13.2 Plt Count (130 - 400 /CUMM) 273 MPV (7.4 - 10.4 FL) 7.3 L Gran % (42.2 - 75.2 %) 66.3 Lymphocytes % (20.5 - 51.1 %) 25.4 Monocytes % (1.7 - 9.3 %) 5.5 Eosinophils % (0 - 5 %) 2.4 Basophils % (0.0 - 2.0 %) 0.4 Absolute Granulocytes (1.4 - 6.5 /CUMM) 4.0 Absolute Lymphocytes (1.2 - 3.4 /CUMM) 1.5 Absolute Monocytes (0.10 - 0.60 /CUMM) 0.3 Absolute Eosinophils (0.0 - 0.7 /CUMM) 0.1 Absolute Basophils (0.0 - 0.2 /CUMM) 0 PUBS MCHC (33.0 - 37.0 G/DL) 33.8 Serology Lyme Disease Antibody (RATIO) 1.20 *H Lyme Ab (Western Blot) Pending Lyme IgG 18 kDa Band Pending Lyme IgG 23 kDa Band Pending Lyme IgG 28 kDa Band Pending Lyme IgG 30 kDa Band Pending Lyme IgG 39 kDa Band Pending Lyme IgG 41 kDa Band Pending Lyme IgG 45 kDa Band Pending Lyme IgG 58 kDa Band Pending Lyme IgG 66 kDa Band Pending Lyme IgG 93 kDa Band Pending Lyme IgM (Western Blot) Pending Lyme IgM 23 kDa Band Pending Lyme IgM 39 kDa Band Pending Lyme IgM 41 kDa Band Pending Imaging/Other Studies: carotid u/s: IMPRESSION: Bilateral hemodynamically significant stenoses consistent with a 50-79% diameter reduction involving both the proximal left and right internal carotid arterie CT IMPRESSION: No acute intracranial pathology. Assessment/Plan Assessment: Cerebrovascular accident, right hemispheric, some improvement over last 24 hours Carotid stenosis Recommendations: Aspirin and statin Vascular consult regarding carotid stenosis regarding possible confirmatory tests and timing for possible endarterectomy on right Consult Acknowledgment - Thank you for your consult request.
--- NOTE | 2016-08-17 17:41 | Event Note ---
Event Note Event Note: I get a call back from vascular surgery Dr. Jensen and discuss patient with him and according to his recommendation . Patient should be treated with medical management first but he would need surgery in the long run but it's not urgent and if patient needs to go back to his home land [place] he would strongly recommend to get his medical care/vascular surgery consultation as soon as possible. Patient was also instructed to come back to ER if his symptoms get worse or with any acute event. Of note patient is visiting his family in [facility] and wants to get his medical management in [place] where he has to go within 10 days
[2016-08-18] MEDS ORDERED: ASPIRIN81 M4 PO (09:16)
== END 2016-08-17 18:55 ==
LOC: ERH 09:45 → 1NO 12:41 → ERHI 12:41 → ENRESERV 13:11 → ENTRNSPT 13:53 → EDTRNSPT 14:01 → 1NO 15:25 → EDTRNSPTTYP 15:39 → CMPTRNSPT 18:37 → 1NO 08-17 18:55
PROVIDERS: Emergency Medicine; Internal Medicine; ADMIT Internal Medicine
DX: I63.233 Cerebral infarction due to unspecified occlusion or stenosis of bilateral carotid arteries (principal); I10 Essential (primary) hypertension; Z87.891 Personal history of nicotine dependence; E78.5 Hyperlipidemia, unspecified; Z86.73 Personal history of transient ischemic attack (TIA), and cerebral infarction without residual deficits
CPT/HCPCS: 86618; 36415; 81001; 82436; 92526-GN; 93005; 93010; 93306; 96372; 96374; 97116-GP; 97161-GP; G0378; G8996-GN; G8997-GN; J1650; J3490